=== PATIENT | female | born 1985 | race Caucasian/White ===

== ENCOUNTER 2018-07-23 07:55 | Emergency (ER) | payer OTHER ==
[~2018-07-23] VITALS: Ht 167.6 cm; Wt 117.9 kg
[~2018-07-23 07:55] MED LIST: ACET325 PO; AMOX500 PO; ASPI325 PO; AZIT250 PO; HYDACE5 PO; HYDCHL25 PO; IBUP600 PO; LABE100 PO; LISI20 PO; Norco 5-325 Ta1 EACH PO; PREN-16 PO; PROCODE120 PO; Pepcid40 MG PO
[2018-07-23] MEDS ORDERED: AMLO5 PO (08:10)
[2018-07-23] MEDS ORDERED: ZESTORETIC 20-251 EA PO (08:11)
[2018-07-23] MEDS ORDERED: PAROEX473 ML MM (08:16)
[2018-07-23] MEDS ORDERED: Amoxicillin875 MG PO (08:16)
== END 2018-07-23 08:22 | disposition home or self-care (01) ==
LOC: ER 07:55
DX: K08.89 Other specified disorders of teeth and supporting structures (principal); I10 Essential (primary) hypertension; F17.200 Nicotine dependence, unspecified, uncomplicated; Z79.899 Other long term (current) drug therapy
CPT/HCPCS: 99282